=== PATIENT | male | born 1950 | race American Indian/Alaskan Native ===

== ENCOUNTER 2018-05-01 00:17 | Emergency (ER) | payer MEDICARE ==
--- NOTE | 2018-05-01 00:30 | Emergency Department Report ---
ED Alcohol HPI - General Chief Complaint: Alcohol Stated Complaint: ETOH Time Seen by Provider: 05/01/18 00:23 Source: patient, family, EMS Mode of arrival: Stretcher Limitations: Physical Limitation - History of Present Illness MD Complaint: alcohol intoxication Last Drink: just [employer] Chronic Alcohol Use: Yes Previous Visits for Alcohol Intoxication?: Yes Recent Trauma: No Associated Symptoms: nausea, vomiting, syncope Treatments Prior to Arrival: none - Related Data Allergies Allergy/AdvReac Type Severity Reaction Status Date / Time No Known Allergies Allergy Unverified 05/01/18 00:36 ED Review of Systems ROS: Stated complaint: ETOH Other details as noted in HPI Comment: All other systems reviewed and negative Constitutional: denies: chills, fever Eyes: denies: eye pain ENT: denies: ear pain Respiratory: denies: cough, shortness of breath Cardiovascular: denies: chest pain, palpitations Endocrine: no symptoms reported Gastrointestinal: abdominal pain, nausea, vomiting Genitourinary: denies: urgency, dysuria Musculoskeletal: denies: back pain Skin: denies: rash Neurological: denies: headache, weakness, numbness Psychiatric: denies: anxiety, depression Hematological/Lymphatic: denies: easy bleeding, easy bruising ED Physical Exam - General Limitations: Physical Limitation General appearance: alert, in no apparent distress - Head Head exam: Present: atraumatic, normocephalic, normal inspection - Eye Eye exam: Present: normal appearance, PERRL, EOMI Pupils: Present: normal accommodation - ENT ENT exam: Present: normal exam, normal orophraynx, mucous membranes moist - Neck Neck exam: Present: normal inspection, full ROM - Respiratory Respiratory exam: Present: normal lung sounds bilaterally. Absent: respiratory distress, wheezes, rales, rhonchi, stridor - Cardiovascular Cardiovascular Exam: Present: regular rate, normal rhythm, normal heart sounds - GI/Abdominal GI/Abdominal exam: Present: soft, distended, tenderness, normal bowel sounds. Absent: guarding, rebound - Extremities Exam Extremities exam: Present: normal inspection, full ROM, normal capillary refill - Back Exam Back exam: Present: normal inspection, full ROM. Absent: tenderness - Neurological Exam Neurological exam: Present: alert, oriented X3, CN II-XII intact - Psychiatric Psychiatric exam: Present: normal affect, normal mood - Skin Skin exam: Present: warm, dry, intact, normal color ED Course Vital Signs 05/01/18 05/01/18 05/01/18 00:24 00:30 00:36 Pulse Rate 87 86 Respiratory 23 12 Rate Blood Pressure 108/75 O2 Sat by Pulse 94 96 99 Oximetry 05/01/18 05/01/18 05/01/18 00:46 01:00 01:22 Pulse Rate 82 84 85 Respiratory 11 L 18 22 Rate Blood Pressure 108/75 122/91 122/91 O2 Sat by Pulse 96 96 99 Oximetry 05/01/18 05/01/18 05/01/18 01:30 01:46 02:00 Pulse Rate 82 80 83 Respiratory 13 23 22 Rate Blood Pressure 134/93 134/93 128/92 O2 Sat by Pulse 100 98 Oximetry - Reevaluation(s) Reevaluation #1: 05/01/18 02:29 Patient care was transferred to Dr Evans at shift change pending CT scan of the chest, abdomen and pelvis prior to re-evaluation and disposition. ED Medical Decision Making - Lab Data Result diagrams: 05/01/18 00:40 05/01/18 00:40 - EKG Data -: EKG Interpreted by Pa EKG shows normal: sinus rhythm Rate: normal (84) - EKG Data When compared to previous EKG there are: previous EKG unavailable Interpretation: nonspecific ST-T wave sri, other (No STEMI.) - Radiology Data Radiology results: report reviewed, image reviewed - Medical Decision Making Alcohol Abuse Critical care attestation.: If time is entered above; I have spent that time in minutes in the direct care of this critically ill patient, excluding procedure time. ED Disposition Clinical Impression: Syncope Qualifiers: Syncope type: unspecified Qualified Code(s): R55 - Syncope and collapse Hypotension Qualifiers: Hypotension type: unspecified hypotension type Qualified Code(s): I95.9 - Hypotension, unspecified Does the pt Need Aspirin: No Condition: Stable Instructions: Syncope (ED) Referrals: PRIMARY CARE, [Primary Care Provider] - 3-5 Days
[2018-05-01] MEDS ORDERED: NACL 0.9% 1000 ML 1,000 ML IV ONE (00:31)
[2018-05-01 01:00] LABS: Basophils # (Auto) 0.1 K/mm3 (0.0-0.1); Basophils % (Auto) 0.7 % (0.0-1.8); Eosinophils # (Auto) 0.1 K/mm3 (0.0-0.4); Eosinophils % (Auto) 1.3 % (0.0-4.3); Hematocrit 39.5 % (35.5-45.6); Hemoglobin 13.8 gm/dl (11.8-15.2); Lymphocytes # (Auto) 2.5 K/mm3 (1.2-5.4); Lymphocytes % (Auto) 24.2 % (13.4-35.0); Mean Corpuscular HGB Conc 35 % (32-34); Mean Corpuscular Hemoglobin 34 pg (28-32); Mean Corpuscular Volume 98 fl (84-94); Monocytes # (Auto) 0.8 K/mm3 (0.0-0.8); Monocytes % (Auto) 7.7 % (0.0-7.3); Platelet Count 206 K/mm3 (140-440); Red Blood Count 4.02 M/mm3 (3.65-5.03); Red Cell Distribution Width 18.3 % (13.2-15.2)
[2018-05-01 01:17] LABS: Alanine Aminotransferase 14 units/L (7-56); Albumin 4.1 g/dL (3.9-5); BUN/Creatinine Ratio 12; Blood Urea Nitrogen 14 mg/dL (9-20); Calcium 8.6 mg/dL (8.4-10.2); Hemolysis Index 3; Lipase 24 units/L (13-60); Partial Thromboplastin Time 26.4 Sec. (24.2-36.6)
--- NOTE | 2018-05-01 01:35 | Cat Scan Report ---
FINAL REPORT EXAM: CT HEAD/BRAIN WO CON HISTORY: Alcohol Intoxication TECHNIQUE: CT was performed from the foramen magnum through the vertex in the axial plane without the use of intravenous contrast. PRIORS: None. FINDINGS: The sousa/white matter attenuation pattern is normal. There is no mass lesion or mass effect. There are no abnormal extra-axial fluid collections. There is no evidence of acute intracranial hemorrhage or infarct. The ventricles are of normal size and configuration. The skull and orbits are unremarkable. The visualized paranasal sinuses are clear. IMPRESSION: Normal CT of the head.
[2018-05-01 01:37] LABS: INR 0.95 (0.87-1.13)
--- NOTE | 2018-05-01 01:43 | XRay Report ---
FINAL REPORT EXAM: XR CHEST 1V AP HISTORY: Alcohol Intoxication TECHNIQUE: AP portable view of the chest. PRIORS: None. FINDINGS: The cardiomediastinal silhouette appears normal. The lungs are clear. The bones and soft tissues are unremarkable. IMPRESSION: No evidence of acute cardiopulmonary disease.
--- NOTE | 2018-05-01 03:39 | Cat Scan Report ---
FINAL REPORT EXAM: CT ANGIO CHEST HISTORY: Syncope TECHNIQUE: High-resolution helical axial images were obtained of the chest during intravenous administration of iodinated contrast. Images are reconstructed in the sagittal and coronal planes. PRIORS: None. FINDINGS: There is no evidence of pulmonary embolism, the pulmonary arteries opacify normally. There is coronary artery atherosclerotic calcifications. Otherwise, the heart and thoracic aorta appear normal. The lungs are clear. Images through the upper abdomen show multiple hepatic cysts. There also a small enhancing lesion in the right lobe of the liver most likely representing a hemangioma. The liver was not completely scanned There is thoracic spondylosis with multiple bridging syndesmophytes.. IMPRESSION: 1. No evidence of pulmonary embolism. 2. Coronary artery atherosclerotic disease 3. Multiple hepatic cysts and likely a small hemangioma. The liver was not completely scanned. 4. Findings are consistent with DISH
--- NOTE | 2018-05-01 03:50 | Cat Scan Report ---
FINAL REPORT EXAM: CT ABDOMEN PELVIS W CON HISTORY: abdominal pain TECHNIQUE: Dynamic helical CT scan through the abdomen and pelvis during and again after intravenous injection of iodinated contrast. Images are reconstructed in the sagittal and coronal planes. Oral contrast was not given. PRIORS: None. FINDINGS: There is a 2.3 cm enhancing lesion in the posterior segment of the right lobe liver most likely representing hemangioma. There are multiple hepatic cysts with the largest in the left lobe measuring 1.3 cm. There are surgical clips in the gallbladder fossa the pancreas, spleen and adrenal glands appear normal. There is a 4 mm low-attenuation lesion in the right kidney most likely representing a cyst or angiomyolipoma. There are several cysts in the left kidney with the largest measuring 2.5 cm. There is an incidental circumaortic left renal vein. 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 There is a small sliding hiatal hernia. The stomach appears grossly within normal limits. There are no abnormally dilated loops of bowel or acute inflammatory changes. A normal-appearing appendix is identified. The abdominal aorta has a normal diameter. There is multilevel degenerative disc disease from L3-4 through L5-S1. IMPRESSION: 1. 2.3 cm enhancing lesion in the posterior segment of the right lobe of the liver most likely represents a hemangioma. Multiple hepatic cysts. 2. No acute findings in the abdomen/pelvis
[2018-05-01 06:16] VITALS: BP 126/95
== END 2018-05-01 05:20 | disposition home or self-care (01) ==
LOC: ED 00:17
DX: R11.2 Nausea with vomiting, unspecified (principal); R55 Syncope and collapse; I95.9 Hypotension, unspecified; N28.1 Cyst of kidney, acquired
CPT/HCPCS: 36415; 70450; 71045; 71275; 74177; 80053; 82550; 82693; 83690; 83735; 83880; 84484; 85025; 85379; 85610; 85730; 93005; 93010; 96360; 99285; G0480; J7030; Q9967; 80320